=== PATIENT | female | born 1995 | race Caucasian/White ===

== ENCOUNTER 2016-04-03 20:37 | Emergency (ER) | payer BC ==
[~2016-04-03] VITALS: Ht 160 cm; Wt 52.5 kg
[2016-04-03 20:43] VITALS: BP 147/98; TEMP 36.7; Ht 160 cm; Wt 52.5 kg
[2016-04-03] MEDS ORDERED: BCPILLS PO (20:53)
[2016-04-03] MEDS ORDERED: OXYCODONE HCL IR 5 MG TAB (IMMEDIATE RELEASE) PO STA (20:56)
--- NOTE | 2016-04-03 21:22 | DIAGNOSTIC IMAGING REPORT ---
LEFT SHOULDER MIN 2 VIEWS ROUTINE CLINICAL HISTORY: Left shoulder pain following fall. COMPARISON: None FINDINGS: Alignment of the left glenohumeral joint is anatomic. There is no acute fracture of the proximal left humerus. There is an acute displaced distal left clavicular fracture. Fracture is displaced 7 mm. There is possible extension to articular surface. The portion of the clavicle distal to the fracture appears aligned with the acromion. IMPRESSION: Acute displaced distal left clavicular fracture with possible extension to the articular surface. Slight elevation of the clavicle proximal to the fracture. The portion of the clavicle distal to the fracture appears aligned with the acromion. Electronically signed by: Ricky Puente M.D. 04/03/2016 9:20 PM Dictated Date/Time: 04/03/2016 9:17 PM
[2016-04-03] MEDS ORDERED: OXYCODONE IR HOME PACK PO ONE (21:30)
[2016-04-03] MEDS ORDERED: OXYC1TAB3 PO (21:31)
[2016-04-03 21:52] VITALS: PULSE 84; O2SAT 99
--- NOTE | 2016-04-03 23:30 | EMERGENCY ROOM VISIT NOTE ---
History First contact with patient: 20:52 Chief Complaint: SHOULDER PAIN Stated Complaint: CANT MOVE ARM,SHOULDER HURTS History of Present Illness The patient is a 21 year old female who presents to the Emergency Room with complaints of left shoulder pain and left neck pain after slipping and falling on ice. The patient believes that she fell directly onto the shoulder. She also hit her head, but had no loss of consciousness. She currently denies any headache, nausea or blurred vision. She also denies any shortness of breath or back pain. She has not noticed any paresthesias or numbness of the left upper extremity. She denies any prior history of chronic left shoulder pain. She has not taken any medications for her pain, and rates her discomfort a 9 out of 10. The patient is [id number]. Review of Systems 10 system review was performed and was negative except for pertinent positives and negatives as indicated in history of present illness Past Medical/Surgical History Medical Problems: (1) No significant past medical history Surgical Problems: (1) History of wisdom tooth extraction Family History FH: cancer FH: diabetes mellitus Social History Smoking Status: Never Smoker Alcohol Use: occasionally Marital Status: single Housing Status: lives with roommate Occupation Status: [employer] student Current/Historical Medications Scheduled Control Pills ( Control Pills), 1 TAB PO DAILY@1700 Scheduled PRN Oxycodone Ir (Roxicodone Ir), 1-2 TAB PO Q4H PRN for Pain Allergies Coded Allergies: Penicillins (Unverified Allergy, Unknown, RASH, 04/03/16) Physical Exam Vital Signs Date Time Temp Pulse Resp B/P Pulse Ox O2 Delivery O2 Flow Rate FiO2 04/03/16 21:52 84 18 99 04/03/16 20:43 36.7 86 20 147/98 99 Room Air Physical Exam CONSTITUTIONAL: Healthy and well nourished. Alert and oriented X 3 with positive affect. Patient appears in moderate discomfort. HEENT: Normocephalic, atraumatic. Pupils equal, round and reactive. No scalp edema, abrasions or hematoma. No subconjunctival hemorrhage, epistaxis, hemotympanum, raccoon's eyes or Prater sign. NECK: Patient has no focal tenderness to palpation through the central cervical spine, and gentle active range of motion causes no significant discomfort. She is mildly tender through the left trapezius muscle. RESPIRATORY: Clear to auscultation bilaterally with no wheezing, crackles, rhonchi or stridor. CARDIOVASCULAR: Regular rate and rhythm with no murmurs, rubs or gallops. MUSCULOSKELETAL: Examination shows general tenderness to palpation about the left shoulder, acromioclavicular joint and acromial process. She has no specific focal posterior tenderness to palpation. Gentle internal and external rotation does not significantly worsen her discomfort. The patient limits range of motion because of discomfort. INTEGUMENTARY: No rash or other significant dermatologic conditions noted. NEUROLOGIC: No focal neurologic deficits noted. Left deltoid sensation is intact. Medical Decision & Procedures ER Provider Diagnostic Interpretation: My interpretation of left shoulder x-rays shows a distal clavicle fracture. Radiologist report is as follows: LEFT SHOULDER MIN 2 VIEWS ROUTINE CLINICAL HISTORY: Left shoulder pain following fall. COMPARISON: None FINDINGS: Alignment of the left glenohumeral joint is anatomic. There is no acute fracture of the proximal left humerus. There is an acute displaced distal left clavicular fracture. Fracture is displaced 7 mm. There is possible extension to articular surface. The portion of the clavicle distal to the fracture appears aligned with the acromion. IMPRESSION: Acute displaced distal left clavicular fracture with possible extension to the articular surface. Slight elevation of the clavicle proximal to the fracture. The portion of the clavicle distal to the fracture appears aligned with the acromion. Medications Administered Medications (Trade) Dose Ordered Sig/Jordyn Route Start Time Stop Time Status Last Admin Dose Admin Oxycodone HCl (Roxicodone Immediate Rel Tab) 5 mg NOW STAT PO 04/03/16 20:56 04/03/16 20:57 DC 04/03/16 21:10 5 MG Oxycodone HCl (Roxicodone Immediate Rel 5MG Home Pack) 1 homepack UD ONCE PO 04/03/16 21:30 04/03/16 21:31 DC 04/03/16 21:30 1 HOMEPACK ED Course Patient history and physical exam were performed. Nurse's notes were reviewed. The patient was administered OxyIR 5 mg for pain. X-rays of the left shoulder confirms a distal clavicle fracture. An arm sling was applied. The patient was also provided an ice pack. She was encouraged to alternate ibuprofen and Tylenol for baseline pain relief. She was provided a home pack and prescription for OxyIR 5 mg as needed for pain. No drinking or driving while taking OxyIR. She was encouraged to follow-up with [facility] for further reevaluation and management. The patient was happy with plan of care, voiced understanding of all discharge instructions, and rated her pain a 4 out of 10 at the conclusion of my exam. Medical Decision Impression Primary Impression: Closed left clavicular fracture Additional Impression: Fall due to slipping on ice or snow Departure Information Prescriptions Oxycodone Ir (Roxicodone Ir) 5 Mg Tab 1-2 TAB PO Q4H Y for Pain, #15 TAB For Initial Treatment Prov: Tariq Vanessa PA 04/03/16 Referrals No Doctor, Assigned (PCP) Patient Instructions A Signature Page, My [facility] Problem Qualifiers Primary Impression: Closed left clavicular fracture Encounter type: initial encounter Clavicle location: lateral end Fracture alignment: displaced Qualified Codes: S42.032A - Displaced fracture of lateral end of left clavicle, initial encounter for closed fracture Additional Impression: Fall due to slipping on ice or snow Encounter type: initial encounter Qualified Codes: W00.9XXA - Unspecified fall due to ice and snow, initial encounter
== END 2016-04-03 21:53 | disposition home or self-care (01) ==
LOC: C.EDB 20:39 → C.EDD 21:53
DX: S42.022A Displaced fracture of shaft of left clavicle, initial encounter for closed fracture (principal); W00.0XXA Fall on same level due to ice and snow, initial encounter; Z79.3 Long term (current) use of hormonal contraceptives